=== PATIENT | male | born 1980 | race Caucasian/White ===

== ENCOUNTER 2017-02-27 08:28 | Emergency (ER) | payer BC ==
[2017-02-27] MEDS ORDERED: CATAPRES TAB 0.2 MG PO ONE (08:37)
[2017-02-27] MEDS ORDERED: CATAPRES TAB 0.2 MG ONE (08:40)
[2017-02-27 08:47] VITALS: BMI 29.0
[2017-02-27] MEDS ORDERED: ASPIRIN 81 MG CHEWTAB PO ONE (08:52)
[2017-02-27] MEDS ORDERED: ASPIRIN 81 MG CHEWTAB ONE (09:07)
[2017-02-27 09:23] LABS: BASOPHILS # (AUTO) 0.1 X10^3/uL (0.0-0.1); BASOPHILS % (AUTO) 1.2 % (0.2-1.0); EOSINOPHILS # (AUTO) 0.1 x10^3/uL (0.0-0.2); EOSINOPHILS % (AUTO) 1.6 % (0.9-2.9); HEMATOCRIT 47.7 % (42.0-54.0); HEMOGLOBIN 16.8 g/dL (13.5-18.0); LYMPHOCYTES # (AUTO) 0.8 X10^3/uL (1.3-2.9); LYMPHOCYTES % (AUTO) 13.1 % (21.0-51.0); MEAN CORPUSCULAR HGB CONC 35.3 g/dL (33.0-35.0); MEAN CORPUSCULAR VOLUME 90.8 fL (80.0-100.0); MEAN PLATELET VOLUME 8.5 fL (7.4-11.0); MONOCYTES # (AUTO) 0.5 x10^3/uL (0.3-0.8); MONOCYTES % (AUTO) 8.7 % (0.0-13.0); NEUTROPHILS # (AUTO) 4.7 x10^3/uL (2.2-4.8); NEUTROPHILS % (AUTO) 75.4 % (42.0-75.0); PLATELET COUNT 170 X10^3/uL (150.0-450.0); RED BLOOD COUNT 5.25 X10^6/uL (4.7-6.0); WHITE BLOOD COUNT 6.2 X10^3/uL (3.6-10.0)
--- NOTE | 2017-02-27 09:34 | CT ---
HISTORY: Left facial paresthesias Study: CT brain without contrast Comparison: None Technique: Multiple axial images of the brain were obtained from the skull base to the vertex without administra tion of IV contrast. Coronal and sagittal reformats were performed. Dose reduction procedures were us ed with mA/kv adjusted for body size. Findings: No acute intraparenchymal hemorrhage or mass can be identified. No extra-axial fluid collections are seen. No alteration in the attenuation of the brain parenchyma can be identified to suggest acute o r subacute ischemic change. The ventricular system is symmetric and nondilated. The extracranial st ructures are grossly unremarkable. The calvarium is intact. If acute CVA is a strong clinical conside ration MRI with diffusion imaging is recommended for further evaluation. IMPRESSION: 1. No significant intracranial abnormality identified Reported By:
[2017-02-27 09:35] LABS: ALANINE AMINOTRANSFERASE 38 Units/L (12-78); ALKALINE PHOSPHATASE 45 Units/L (46-116); ASPARTATE AMINO TRANSFERASE 23 Units/L (15-37); BLOOD UREA NITROGEN 13 mg/dL (7-18); CALCIUM 9.3 mg/dL (8.5-10.1); CARBON DIOXIDE 27.5 mmol/L (21-32); CHLORIDE 102 mmol/L (98-107); COR NA(FOR HYPERGLY) 140 mmol/L (136-145); CREATININE 1.39 mg/dL (0.70-1.30); SODIUM 140 mmol/L (136-145); TOTAL PROTEIN 6.9 g/dL (6.4-8.2); TSH (3RD GENERATION) 2.327 uIU/mL (0.358-3.74); eGFR BLACK RACES > 60 (>60); eGFR NON BLACK RACES > 60 (>60)
--- NOTE | 2017-02-27 09:49 | RAD ---
History: Hypertension, facial weakness Study: PA and lateral chest Findings: The cardiac silhouette and mediastinum appear within normal limits. The lungs are clear. No pleural effusion is seen. No acute osseous abnormality Impression: No acute radiographic chest findings.. Reported By:
--- NOTE | 2017-02-27 09:51 | DR.GENAD ---
HPI - PCP Primary Care Physician: MARINA ALCANTAR - HPI Comment HPI Comment: #6 y/o presents with Lt. side of face feeling numb, seeing spots and just not feeling good. He denies h/a, n/v. He had BP checked at work ([employer]) and SBP was > 190. He already took his Lisinopril + CTZ for the day already. - Complaint/Symptoms Chief Complaint:: PT STATES WHEN HER ARRIVED TO WORK THIS AM HE WAS FELLING BAD AND ABOUT 30 MIN HE STARTED HAVING TINGLING TO THE LEFT SIDE OF HIS FACE AND SEEING SPOTS AND IT GOT WORSE 30 MIN BEFORE HE GOT HERE.. Self Treatment fo Chief Complaint: PT TOOK HIS LISINOPRIL AND HCTZ THIS AM ,, - Nurses notes reviewed Nurses Notes Review: Yes - Source History Provided: Patient - Mode of Arrival Mode of Arrival: Ambulatory - Timing Onset of Chief Complaint: 02/27/17 - Modifying Factors Worsens:: none Improves:: none PMH - PMH Past Medical History: Yes Past Medical History: Hypertension Past Surgical History: Yes Past Surgical History Comment: ORAL SURGERY - Family History History of Family Medical Conditions: No - Social History Does patient currently use any type of tobacco product: Yes Have you used tobacco products in the last 12 months: Yes Type of Tobacco Use: Smokeless Does any household member use tobacco: No Alcohol Use: None Do you use any recreational Drugs:: No Lives With: Spouse Lives Where: Home - infectious screening In the last 2 months have you had wt loss of >10#?: NO Have you had fever, night sweats or hemotysis?: No Have you traveled outside the country in the last 6 months?: No Isolation: Standard ROS - Review of Systems Constitutional: No Symptoms Reported Eyes: Other (scotomata) ENTM: No Symptoms Reported Respiratoy: No Symptoms Reported Cardiovascular: No Symptoms Reported Gastrointestinal/Abdominal: No Symptoms Reported Genitourinary: No Symptoms Reported Neurological: Numbness (Lt. side of face and hands) Musculoskeletal: No Symptoms Reported Integumentary: No Symptoms Reported Hematologic/Lymphatic: No Symptoms Reported Endocrine: No Symptoms Reported Psychiatric: No Symptoms Reported All Other Systems: Reviewed and Negative PE - Vital Signs Vitals: Temperature 98.4 F Pulse Rate [Left Brachial] 96 Pulse Rate 84 Respiratory Rate 22 Blood Pressure [Left Arm] 148/79 Blood Pressure 198/124 O2 Sat by Pulse Oximetry 97 - General General Appearance: Alert, In No Apparent Distress - Head Head Exam: Normal Inspection - Eyes Eye exam: Normal Appearance - ENT ENT Exam: Normal Exam External Ear Exam: Normal External Inspection TM/Canal Exam: Bilateral Normal Nose Exam: Normal Nose Exam Mouth Exam: Normal Inspection Throat Exam: Normal Inspection - Neck Neck Exam: Normal Inspection, Full ROM - Chest Chest Inspection: Normal Inspection - Respiratory Respiratory Exam: Normal Lung Sounds Bilat Respiratory Exam: Bilateral Clear to Auscultation - Cardiovascular Cardiovascular Exam: Regular Rate, Normal Rhythm - Abdominal Exam Abdominal Exam: Normal Inspection, Normal Bowel Sounds, Soft - Extremities Extremities Exam: Normal Inspection, Full ROM, Normal Capillary Refill - Neurologic Neurological Exam: Alert, Oriented X3, CN II-XII Intact - Psychiatric Psychiatric Exam: Normal Affect, Normal Mood - Skin Skin Exam: Warm, Dry, Intact, Normal Color Course - Reevaluation 1st: Improved 2nd: Improved - Consultation Called: 10:55 Call Returned: 10:55 Consultation Comments: Add Smlodipe 10 mg to his regimen. He may be d/c from the E.D. with office f/u tomorrow a.m. - Education/Counseling Education/Counseling: Patient, Family Educated On: Treatment, Diagnosis, Prognosis, Needs for Follow Up ROR - Labs Reviewed Result Diagrams: 02/27/17 09:03 02/27/17 09:03 Laboratory: WBC 6.2 X10^3/uL (3.6-10.0) 02/27/17 09:03 RBC 5.25 X10^6/uL (4.7-6.0) 02/27/17 09:03 Hgb 16.8 g/dL (13.5-18.0) 02/27/17 09:03 Hct 47.7 % (42.0-54.0) 02/27/17 09:03 MCV 90.8 fL (80.0-100.0) 02/27/17 09:03 MCH 32.0 pg (27.0-34.0) 02/27/17 09:03 MCHC 35.3 g/dL (33.0-35.0) H 02/27/17 09:03 RDW 13.0 % (11.6-16.5) 02/27/17 09:03 Plt Count 170 X10^3/uL (150.0-450.0) 02/27/17 09:03 MPV 8.5 fL (7.4-11.0) 02/27/17 09:03 Neut % 75.4 % (42.0-75.0) H 02/27/17 09:03 Lymph % 13.1 % (21.0-51.0) L 02/27/17 09:03 [place] % 8.7 % (0.0-13.0) 02/27/17 09:03 Eos % 1.6 % (0.9-2.9) 02/27/17 09:03 Baso % 1.2 % (0.2-1.0) H 02/27/17 09:03 Neut # 4.7 x10^3/uL (2.2-4.8) 02/27/17 09:03 Lymph # 0.8 X10^3/uL (1.3-2.9) L 02/27/17 09:03 [place] # 0.5 x10^3/uL (0.3-0.8) 02/27/17 09:03 Eos # 0.1 x10^3/uL (0.0-0.2) 02/27/17 09:03 Baso # 0.1 X10^3/uL (0.0-0.1) 02/27/17 09:03 Absolute Nucleated RBC 0.1 /100WBC 02/27/17 09:03 ESR 1 MM/HOUR (0-15) 02/27/17 09:03 Sodium 140 mmol/L (136-145) 02/27/17 09:03 Corrected Sodium 140 mmol/L (136-145) 02/27/17 09:03 Potassium 3.8 mmol/L (3.5-5.1) 02/27/17 09:03 Chloride 102 mmol/L (98-107) 02/27/17 09:03 Carbon Dioxide 27.5 mmol/L (21-32) 02/27/17 09:03 BUN 13 mg/dL (7-18) 02/27/17 09:03 Creatinine 1.39 mg/dL (0.70-1.30) H 02/27/17 09:03 Est GFR (MDRD) Af Amer > 60 (>60) 02/27/17 09:03 Est GFR (MDRD) Non-Af > 60 (>60) 02/27/17 09:03 Glucose 120 mg/dL (65-99) H 02/27/17 09:03 Calcium 9.3 mg/dL (8.5-10.1) 02/27/17 09:03 Corrected Calcium TNP 02/27/17 09:03 Total Bilirubin 0.80 mg/dL (0.2-1.0) 02/27/17 09:03 AST 23 Units/L (15-37) 02/27/17 09:03 ALT 38 Units/L (12-78) 02/27/17 09:03 Alkaline Phosphatase 45 Units/L (46-116) L 02/27/17 09:03 Total Protein 6.9 g/dL (6.4-8.2) 02/27/17 09:03 Albumin 4.0 g/dL (3.4-5.0) 02/27/17 09:03 Globulin 2.9 g/dL (2.5-4.5) 02/27/17 09:03 Albumin/Globulin Ratio 1.4 Ratio (1.1-2.1) 02/27/17 09:03 TSH 3rd Generation 2.327 uIU/mL (0.358-3.74) 02/27/17 09:03 Specimen Type Clean catch urine 02/27/17 09:39 Urine Color Yellow (YELLOW) 02/27/17 09:39 Urine Appearance Clear (CLEAR) 02/27/17 09:39 Urine pH 7.0 (5.0 - 8.0) 02/27/17 09:39 Ur Specific [place] 1.015 (1.000-1.030) 02/27/17 09:39 Urine Protein Negative (NEGATIVE) 02/27/17 09:39 Urine Glucose (UA) Negative (NEGATIVE) 02/27/17 09:39 Urine Ketones Negative (NEGATIVE) 02/27/17 09:39 Urine Occult Blood Negative (NEGATIVE) 02/27/17 09:39 Urine Nitrite Negative (NEGATIVE) 02/27/17 09:39 Urine Bilirubin Negative (NEGATIVE) 02/27/17 09:39 Urine Urobilinogen Normal (NORMAL) 02/27/17 09:39 Ur Leukocyte Esterase Negative (NEGATIVE) 02/27/17 09:39 Urine RBC None seen /HPF (NEGATIVE) 02/27/17 09:39 Urine WBC None seen /HPF (NEGATIVE) 02/27/17 09:39 Ur Squamous Epith Cells Rare /HPF (NEGATIVE) 02/27/17 09:39 Amorphous Sediment Trace /HPF (NEGATIVE) 02/27/17 09:39 Urine Bacteria Negative /HPF (NEGATIVE) 02/27/17 09:39 Ur Culture Indicated? No/not indicated 02/27/17 09:39 - XRAY XRAY Interpreted by: Radiologist XRAY Findings: CT Brain: No acute intracranial findings. CXR: NAD. - EKG Rate: 83 [place]: Normal Rhythm: NSR Block: None Hypertrophy: None (Old Q waves in leads 11, 1111and aVF.) - Diagnosis Discharge Problem: HTN (hypertension), malignant - Discharge Plan Disposition: 01 HOME, SELF-CARE Condition: Stable - Follow ups/Referrals Follow ups/Referrals: AL GRAY [Primary Care Provider] - 3 days - Instructions
[2017-02-27 10:01] LABS: BILIRUBIN,URINE NEGATIVE (NEGATIVE); BLOOD/HEMOGLOBIN,URINE NEGATIVE (NEGATIVE); GLUCOSE, URINE NEGATIVE (NEGATIVE); KETONES,URINE NEGATIVE (NEGATIVE); LEUKOCYTE ESTERASE ,URINE NEGATIVE (NEGATIVE); NITRITES,URINE NEGATIVE (NEGATIVE); PROTEIN,URINE NEGATIVE (NEGATIVE); UROBILINOGEN,URINE NORMAL (NORMAL)
[2017-02-27 10:05] LABS: AMORPHOUS SEDIMENT,UR TRACE /HPF (NEGATIVE); APPEARANCE,URINE CLEAR (CLEAR); BACTERIA,URINE NEGATIVE /HPF (NEGATIVE); COLOR,URINE YELLOW (YELLOW); RBC,URINE NONE SEEN /HPF (NEGATIVE); SQUAMOUS EPITHELIAL CELL,UR RARE /HPF (NEGATIVE)
[2017-02-27 10:14] LABS: ERYTHROCYTE SEDIMENTATION RATE 1 MM/HOUR (0-15)
[2017-02-27 10:59] VITALS: BP 148/79
[2017-02-27] MEDS ORDERED: NORVASC TAB 10 MG PO SCH (11:00)
== END 2017-02-27 11:28 | disposition home or self-care (01) ==
LOC: ER 08:42
DX: I10 Essential (primary) hypertension (principal)
CPT/HCPCS: 36415; 70450; 71020; 80053; 81001; 84443; 85025; 85652; 93005; 93010; 99283